=== PATIENT | female | born 1995 | race American Indian/Alaskan Native ===

== ENCOUNTER 2020-12-25 14:57 | Outpatient (CLI) | payer OTHER ==
--- NOTE | 2020-12-25 16:03 | MRI Report ---
PROCEDURE: Cervical Spine W/O INDICATIONS: CERVICAL RADICULOPATHY TECHNIQUE: Noncontrast sagittal T1 spin echo and T2 fast spin echo, sagittal STIR, foraminal oblique sagittal T2 fast spin echo, and axial gradient echo or T2 fast spin echo through the cervical spine. COMPARISON: None. FINDINGS: Image quality: Motion artifact is noted. Alignment and Curvature: There is normal bony alignment. Bone Marrow: Marrow demonstrates normal overall signal. Spinal Cord: Visualized spinal cord has normal size and signal. No cerebellar tonsillar herniation. Paraspinous Soft Tissues: No paravertebral masses. Prevertebral soft tissues are normal in thicknes s. C2-C3: Normal in appearance. C3-C4: Normal in appearance. C4-C5: Normal in appearance. C5-C6: Normal in appearance. C6-C7: Normal in appearance. C7-T1: Normal in appearance. IMPRESSION: No imaging explanation is found for the patient's presenting symptoms. Study within normal limits, without findings of focal disc pathology, central canal narrowing, or jesus ral foraminal narrowing. Reviewed by: Panchito Bond MD on 12/25/2020 3:02 PM [facility] Approved by: Panchito Bond MD on 12/25/2020 3:02 PM [facility] Station ID: [id number]
== END 2020-12-25 14:58 | disposition home or self-care (01) ==
LOC: DI 14:57
DX: M54.12 Radiculopathy, cervical region (principal)